=== PATIENT | female | born 1980 | race Two or more races ===

== ENCOUNTER 2020-12-12 20:27 | Emergency (ER) | payer MEDICAID ==
[~2020-12-12] VITALS: Ht 172.7 cm; Wt 90.3 kg
[2020-12-12 21:55] VITALS: BP 134/75
== END 2020-12-12 22:50 | disposition home or self-care (01) ==
LOC: ER 20:36
DX: T22.212A Burn of second degree of left forearm, initial encounter (principal); J45.909 Unspecified asthma, uncomplicated; Z88.1 Allergy status to other antibiotic agents; X08.8XXA Exposure to other specified smoke, fire and flames, initial encounter; Y93.89 Activity, other specified; Y92.89 Other specified places as the place of occurrence of the external cause; Y99.8 Other external cause status